=== PATIENT | female | born 1950 | race Caucasian/White ===

== ENCOUNTER 2019-04-12 14:19 | Inpatient (IN) ==
[2019-04-12] MEDS ORDERED: ASPIRIN ONE (14:31)
[2019-04-12] MEDS ORDERED: ASPIRIN PO ONE (14:32)
[2019-04-12 14:51] LABS: BASO# 0.03 X1000 (0.0-0.2); BASO% 0.3 % (0.0-0.8); EOS# 0.12 X1000 (0.0-0.7); EOS% 1.2 % (0.0-10.0); HEMATOCRIT 42.7 % (37.0-47.0); HEMOGLOBIN 13.8 g/dL (12.0-16.0); IMM GRAN# 0.02 X1000 (0.0-0.04); IMM GRAN% 0.2 % (0.0-0.5); LYMPH# 1.32 X1000 (1.2-3.4); LYMPH% 12.7 % (20.5-51.1); MCH 28.5 PG (27-31); MCHC 32.3 g/dL (33-37); MCV 88.2 FL (81-99); MONO# 1.07 X1000 (0.11-0.59); MONO% 10.3 % (1.7-9.3); MPV 10.4 FL (7.4-10.4); NEUT# 7.83 X1000 (1.4-6.5); NEUT% 75.3 % (42.2-75.2); PLT 229 X1000 (130-400); RBC 4.84 XMIL (4.2-5.4); RDW 13.2 % (11.5-14.5); WBC 10.39 X1000 (4.8-10.8)
--- NOTE | 2019-04-12 14:56 | EKG Report ---
Test Performed on : 04/12/2019 2:29:56 PM Test Reason : chest pain Blood Pressure : / mmHG Vent. Rate : 089 BPM Atrial Rate : 089 BPM P-R Int : 138 ms QRS Dur : 068 ms QT Int : 364 ms P-R-T Axes : 047 -04 060 degrees QTc Int : 442 ms Normal sinus rhythm. Low voltage QRS Inferior infarct (cited on or before 11-OCT-2018) Abnormal ECG When compared with ECG of 11-OCT-2018 21:23, Nonspecific T wave abnormality no longer evident in Inferior leads Nonspecific T wave abnormality no longer evident in Anterior leads Unconfirmed Result
--- NOTE | 2019-04-12 15:07 | Diag Imaging Result Doc PS360 ---
EXAM: CHEST-2 VIEWS - 04/12/2019 HISTORY: chest pain TECHNIQUE: Chest two views COMPARISON: 10/11/2018 one view chest FINDINGS: Heart size is normal. Inspiration is mildly shallow. There are scattered tiny granulomas from old granulomatous disease similar to prior. There is mild subsegmental atelectasis at the left base. The lungs otherwise appear clear. No pleural effusion or pneumothorax identified. IMPRESSION: Mildly shallow inspiration, with mild atelectasis at left base. No other evidence of acute disease.. Electronically signed by Ke Scanlon 04/12/2019 3:05 PM
[2019-04-12 15:16] LABS: ALBUMIN 4.9 g/dL (3.5-5.0); CALCIUM 9.6 mg/dL (8.8-10.2); CREATININE 1.1 mg/dL (0.5-0.9); POTASSIUM 4.3 mmol/L (3.5-5.1); TOTAL BILIRUBIN 0.6 mg/dL (0.20-1.00); TOTAL PROTEIN 8.1 g/dL (6.3-8.3)
[2019-04-12 15:24] LABS: INR 0.96; PROTIME 13.3 Seconds (11.0-16.0)
[2019-04-12 15:25] LABS: PTT 30.1 Seconds (22.3-41.8)
[2019-04-12] MEDS ORDERED: ZOFRAN IV ONE (15:59)
[2019-04-12] MEDS ORDERED: MORPHINE IV ONE (15:59)
--- NOTE | 2019-04-12 16:53 | PROVIDER DOCUMENTATION ---
This chart was entered by Freida Hagan Scribe, acting as scribe for Clair Mae MD. HPI-Chest Pain - General Chief Complaint: Chest Pain Stated Complaint: CHEST PAIN Time Seen by Provider: 04/12/19 14:27 Source: patient, family () Allergies/Adverse Reactions: Patient Allergies Allergy/AdvReac Type Severity Reaction Status Date / Time hydrocodone bitartrate * Allergy Severe RASH Verified 04/12/19 14:31 [From Vicodin] Home Medications: Home Medication List Medication Instructions Recorded Confirmed Last Taken Type Clopidogrel Bisulfate [Plavix] 75 mg PO DAILY 07/03/14 04/12/19 05/26/15 History Gabapentin [Neurontin] 300 mg PO TID 05/14/15 04/12/19 05/27/15 21:00 History 300 Metoprolol Succinate E.r. [Toprol 50 mg PO DAILY 05/14/15 04/12/19 05/27/15 21:00 History Xl] 50 Acetaminophen/Diphenhydramine 1 cap PO HS 10/09/15 04/12/19 Unknown History [Pain Relief Pm Gelcap] Citalopram [Celexa] 20 mg PO DAILY 10/09/15 04/12/19 Unknown History Olmesartan/Amlodipin/Hcthiazid 1 each PO DAILY 10/09/15 04/12/19 Unknown History [Tribenzor 40-5-25 mg Tablet] Amitriptyline [Elavil] 25 mg PO HS PRN #15 tab 02/26/18 04/12/19 Unknown Rx Diphenhyramine/Al&mg Oh/Lido [Mbx 15 ml MT 4XDAY PRN PRN #2 bottle 02/26/18 04/12/19 Unknown Rx Solution] Tramadol/APAP [Ultracet 1 ea PO Q6H PRN PRN #20 tab 02/26/18 04/12/19 Unknown Rx 37.5MG/325Mg] Insulin Detemir [Levemir Flextouch] 50 unit SQ HS 04/12/19 04/12/19 Unknown History - History of Present Illness-CP Nature of Presenting Problem: Pt is a 69 yowf brought to the ED by her family experiencing chest pain. Pt states that she thought it was indigestion and took o/c drugs to relieve it but nothing has worked. pt states that the pain is in the center of her chest and left side into her arm. pt is alert and nontoxic in appearance. Location: reports: central, shoulder Chest Pain Radiation: reports: neck (left side), shoulders (left) Quality of Pain: reports: dull (constantly), sharp (intermediate every 2 or 3 minutes) Severity in ED: severe Onset/Duration: 24 hours ago Timing: still present, intermittent (sharp pain), constant (dull pain) Context/Activities at Onset: reports: light activity Modifying Factors: improves with: antacids (taken to no effect) Associated Symptoms: denies: dizziness, syncope Aspirin Treatment Today: unknown Review of Systems - Adult - REVIEW OF SYSTEMS - ADULT Constitutional: denies: chills, fever Eyes: reports: no symptoms reported Ears, Nose, Mouth & Throat: reports: no symptoms reported Cardiovascular: reports: chest pain. denies: edema, syncope Respiratory: denies: cough, shortness of breath, wheezing Gastrointestinal: reports: no symptoms reported Genitourinary: reports: no symptoms reported Musculoskeletal: reports: see HPI, neck pain (left side) Integumentary: reports: no symptoms reported Neurological: denies: dizziness/vertigo, syncope Psychiatric: reports: no symptoms reported Endocrine: reports: no symptoms reported Hematologic/Lymphatic: reports: no symptoms reported Allergic/Immunologic: reports: no symptoms reported All Other Systems: Reviewed and Negative Past History - Adult - PAST MEDICAL HISTORY-ADULT Review of Records: reports: Old Records Reviewed, Nursing Assessment Review, Medications Reviewed, Social history reviewed & non-contributory. Major Childhood Illnesses: reports: denies history Cardiovascular: reports: CAD, HTN Respiratory: reports: denies history Gastrointestinal: reports: GERD, other (diverticulitis) Genitourinary: reports: denies history Musculoskeletal: reports: denies history Neurological: reports: Seizures/Epilepsy, TIA Endocrine/Immune: reports: Diabetes Other Conditions: reports: denies history - PRIOR SURGERIES/PROCEDURES Surgical/Procedure History: reports: hysterectomy, bowel surgery (colon resection) - IMMUNIZATION STATUS Childhood Immunizations: See Nurse Assessment Flu Vaccine: See Nurse Assessment - SOCIAL HISTORY Smoking: non-smoker Substance Use: denies Living Situation: family Physical Exam-General - PHYSICAL EXAM-ADULT Initial Vital Signs Reviewed: Yes - CONSTITUTIONAL General Appearance: alert, no apparent distress - EYES Eyes: PERRL/EOMI - HEAD, EARS, NOSE, MOUTH & THROAT HENMT: moist mucous membranes - RESPIRATORY Respiratory: lungs clear - CARDIOVASCULAR Cardiovascular: normal peripheral pulses, regular rate, rhythm - GASTROINTESTINAL (ABDOMEN) Abdominal Exam: non tender, soft - MUSCULOSKELETAL Back Exam: no CVA tenderness, no vertebral tenderness Extremity: non-tender - SKIN Integumentary: normal color, normal turgor, warm/dry - NEUROLOGIC Neurologic: grossly normal, no motor/sensory deficits - PSYCHIATRIC Psych/Mental Status: normal mood/affect, normal thought content, normal thought process, oriented x 3 - HEART Score HEART Score: History: Slightly Suspicious HEART Score: ECG: Non-Specific Repolarization Disturbance/LBBB/PM HEART Score: Age: > or = 65 Years HEART Score: Risk Factors for Atherosclerotic Disease: > or = 3 Risk Factors or History of Atherosclerotic Disease HEART Score: Troponin: < or = Normal Limit Total HEART Score:: 5 Progress - PLAN OF CARE/RESULTS Progress/Plan/Lab Results: Vital Signs - 8 hr 04/12/19 14:26 04/12/19 16:08 Temperature 98.2 F Pulse Rate 89 84 Respiratory Rate 18 20 Blood Pressure 134/81 124/72 O2 Sat by Pulse Oximetry 95 97 Laboratory Results - last 24 hr 04/12/19 04/12/19 04/12/19 14:40 14:40 14:40 WBC 10.39 RBC 4.84 Hgb 13.8 Hct 42.7 MCV 88.2 MCH 28.5 MCHC 32.3 L RDW Std Deviation 13.2 Plt Count 229 MPV 10.4 Immature Gran % (Auto) 0.2 Neut % (Auto) 75.3 H Lymph % (Auto) 12.7 L [place] % (Auto) 10.3 H Eos % (Auto) 1.2 Baso % (Auto) 0.3 Immature Gran # (Auto) 0.02 Neut # (Auto) 7.83 H Lymph # (Auto) 1.32 [place] # (Auto) 1.07 H Eos # (Auto) 0.12 Baso # (Auto) 0.03 PT INR PTT (Actin FS) Sodium 138 Potassium 4.3 Chloride 101 Carbon Dioxide 22 L Anion Gap 15 BUN 28 H Creatinine 1.1 H Estimated GFR/1.73 m2 49 BUN/Creatinine Ratio 25 Glucose 153 H Calculated Osmolality 284 Calcium 9.6 Total Bilirubin 0.60 AST 20 ALT 12 Alkaline Phosphatase 87 Creatine Kinase 147 Troponin T Anr-Q-[place] Pept 142 Total Protein 8.1 Albumin 4.9 Globulin 3.0 Albumin/Globulin Ratio 2.0 04/12/19 04/12/19 14:40 14:40 WBC RBC Hgb Hct MCV MCH MCHC RDW Std Deviation Plt Count MPV Immature Gran % (Auto) Neut % (Auto) Lymph % (Auto) [place] % (Auto) Eos % (Auto) Baso % (Auto) Immature Gran # (Auto) Neut # (Auto) Lymph # (Auto) [place] # (Auto) Eos # (Auto) Baso # (Auto) PT 13.3 INR 0.96 PTT (Actin FS) 30.1 Sodium Potassium Chloride Carbon Dioxide Anion Gap BUN Creatinine Estimated GFR/1.73 m2 BUN/Creatinine Ratio Glucose Calculated Osmolality Calcium Total Bilirubin AST ALT Alkaline Phosphatase Creatine Kinase Troponin T < 0.010 [id number] Pept Total Protein Albumin Globulin Albumin/Globulin Ratio Orders Category Date Time Status Cardiac Monitoring DIRECTED Care 04/12/19 14:32 Active Oxygen Therapy- ED Nursing DIRECTED Care 04/12/19 14:32 Active Saline Loc NOW Care 04/12/19 14:32 Active CHEST-2 VIEWS [RAD] Stat Exams 04/12/19 14:33 Completed CBC WITH ELECTRONIC DIFF [HEME] Stat Lab 04/12/19 14:40 Completed CK PROFILE [SP CHEM] Stat Lab 04/12/19 14:40 Completed COMPREHENSIVE METABOLIC PANEL [CHEM] Stat Lab 04/12/19 14:40 Completed PRO B-NATRIURETIC PEPTIDE Stat Lab 04/12/19 14:40 Completed PROTIME WITH INR [COAG] Stat Lab 04/12/19 14:40 Completed PTT [COAG] Stat Lab 04/12/19 14:40 Completed TROPONIN T Stat Lab 04/12/19 14:40 Completed Aspirin Med 04/12/19 14:31 Discontinued 325 mg .ROUTE .STK-MED ONE Aspirin Med 04/12/19 14:32 Discontinued 325 mg PO NOW ONE Morphine Med 04/12/19 15:59 Discontinued 4 mg IV NOW ONE Ondansetron [Zofran] Med 04/12/19 15:59 Discontinued 4 mg IV NOW ONE CP/SOB/Palp >45 yrs of Age Stat Oth 04/12/19 14:32 Ordered EKG [EKG] Stat Ther 04/12/19 14:32 Draft Result Diagrams: 04/12/19 14:40 04/12/19 14:40 - REASSESSMENT Reassessment #1 Time Reassessed: 16:42 Status: unchanged Reassessment Comment: at bedside discussing POC - EKG 1 Time of EKG reading by physician:: 15:57 EKG Read and Signed by:: Clair Mae EKG Interpretation (*Must complete 3 of following elements*): Abnormal Rate: 89 Rhythm: NSR [place]: normal QRS: other (Low voltage) [place] Interval: normal ST Wave: normal Comments: Inferior infarct, age undetermined - XRAY 1 XRAY Study: Chest Impression: See EMR Report (EXAM: CHEST-2 VIEWS - 04/12/2019 HISTORY: chest pain TECHNIQUE: Chest two views COMPARISON: 10/11/2018 one view chest FINDINGS: Heart size is normal. Inspiration is mildly shallow. There are scatter ed tiny granulomas from old granulomatous disease similar to prior. There is mild subsegmental atelectasis at the left base. The lungs otherwise appear clear. No pleural effusion or pneumothorax identified. IMPRESSION: Mildly shallow inspiration, with mild atelectasis at left base. No other evidence of acute disease.. Electronically signed by Ke Scanlon 04/12/2019 3:05 PM 04/12/19 1505 Interpreting Physician: Ke Scanlon MD Dictated Date/Time: 04/12/19 1503 cc: Clair Mae MD; Asmita Han MD) - CONSULTS/PCP/HOSPITALIST Notification #1 *Consult/PCP/Hospitalist*: Time Discussed: 16:44 Reason/Comments: HTN, chest pain Consult Disposition: Admit Departure - Departure Date of Disposition Decision: 04/12/19 Time of Disposition Decision: 16:52 DIAGNOSIS: Chest pain Qualifiers: Chest pain type: unspecified Qualified Code(s): R07.9 - Chest pain, unspecified Disposition: ADMITTED INPATIENT 09 Certified Medical Emergency: Emergent Condition: Good Referrals and Follow-Ups: Asmita Han MD [Primary Care Provider] - - Critical Care Note This patient required my direct & personal management of CC.: No Attestation - Physician/ CECILIA Attestation Patient care was provided by Advanced Practice Provider:: No The physician spent face to face time with patient:: Yes Advanced Practice Provider documentation review:: Supervising physician onsite and consulted in the evaluation and care of this patient. The physician did have a face to face encounter with the patient. This chart was documented by the indicated scribe, (Freida Hagan, Patricia) and accurately reflects the services I performed and decisions made by me, Clair Mae MD, as attested by the provider's signature.
[2019-04-12] MEDS ORDERED: MBX SOLUTION MT PRN (16:58)
[2019-04-12] MEDS ORDERED: ULTRACET 37.5MG/325MG PO PRN (16:58)
[2019-04-12] MEDS ORDERED: TYLENOL PO PRN (16:58)
[2019-04-12] MEDS ORDERED: NITROGLYCERIN SL PRN (16:58)
[2019-04-12] MEDS ORDERED: ELAVIL PO PRN (16:58)
[2019-04-12] MEDS ORDERED: ZOFRAN IV PRN (16:58)
[2019-04-12] MEDS ORDERED: NEURONTIN PO SCH (17:00)
--- NOTE | 2019-04-12 17:16 | EKG Report ---
Test Performed on : 04/12/2019 5:11:21 PM Test Reason : cp Blood Pressure : / mmHG Vent. Rate : 080 BPM Atrial Rate : 080 BPM P-R Int : 148 ms QRS Dur : 062 ms QT Int : 368 ms P-R-T Axes : 035 -12 015 degrees QTc Int : 424 ms Normal sinus rhythm. Inferior infarct (cited on or before 11-OCT-2018) Cannot rule out Anterior infarct , age undetermined Abnormal ECG When compared with ECG of 12-APR-2019 14:29, (Unconfirmed) Nonspecific T wave abnormality now evident in Inferior leads Unconfirmed Result
--- NOTE | 2019-04-12 18:24 | ED EKG INTERP ---
This chart was entered by Freida Hagan Scribe, acting as scribe for Clair Mae MD. EKG Interpretation - EKG Time of EKG reading by physician:: 17:13 EKG Read and Signed by:: Clair Mae EKG Interpretation (*Must complete 3 of following elements*): Abnormal (Cnnot rule out Anterior infarct , age undetermined) Rate: 80 Rhythm: NSR [place]: normal QRS: normal [place] Interval: normal ST Wave: normal Comments: Inferior infarct, age undetermined; Attestation - Physician/ CECILIA Attestation Patient care was provided by Advanced Practice Provider:: No The physician spent face to face time with patient:: Yes Advanced Practice Provider documentation review:: Supervising physician onsite and consulted in the evaluation and care of this patient. The physician did have a face to face encounter with the patient. This chart was documented by the indicated scribe, (Freida Hagan Scribe) and accurately reflects the services I performed and decisions made by me, Clair Mae MD, as attested by the provider's signature.
--- NOTE | 2019-04-12 20:39 | HISTORY AND PHYSICAL ---
PRIMARY CARE PROVIDERS: Asmita Han. AIRFRAME TECHNICIAN: Dr. Serrano. CHIEF COMPLAINT: Chest pain. HISTORY OF PRESENT ILLNESS: Ms. 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 She stated that it started around 7:30 last night in the kitchen when she was cutting up chicken for her puppy dog. She had nausea with it. It radiated up into her neck and into her back. She was dizzy, short of breath. It would only last for is a few seconds and it happen every few minutes. She was able to sleep last night, but she forgot about actually being able to take nitroglycerin or aspirin. She did not take either one. She states the pain would increase with a deep inspiration. Otherwise, there were no other symptoms. PAST MEDICAL HISTORY: 1. Coronary artery disease, stent in 2012. 2. Angina. 3. Anemia. 4. Diverticulosis. 5. GERD. 6. Dysphagia. 7. Peptic ulcer disease with a history of GI bleed. 8. Esophagitis with stricture, dilatation. 9. Chronic diarrhea. 10. Hiatal hernia. 11. Diabetes mellitus type 2. 12. Hypertension. 13. Hyperlipidemia. 14. 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 SURGICAL HISTORY: 1. Cardiac stent. 2. Esophageal dilatation. 3. Spinal surgery x3, 1 of them in the neck. 4. Cholecystectomy. 5. Appendectomy. 6. Bilateral cataracts. 7. Tonsillectomy and adenoidectomy. 8. Colon resection x2 or 3 due to polyps. She states that she was informed that if they had to do another colon resection, she would end up with a colostomy, but no colostomy for now. SOCIAL HISTORY: Denies tobacco, alcohol or illicit drug use. Lives at home with her . They enjoy go going to [employer], playing bingo on Fridays. FAMILY HISTORY: Mother had hypertension, coronary disease and dementia. Father had coronary disease, hypertension, and prostate cancer. ALLERGIES: Hydrocodone. HOME MEDICATIONS: 1. Celexa 20 mg p.o. daily. 2. Levemir 50 units subcutaneous nightly. 3. Neurontin 300 mg p.o. t.i.d. 4. Tylenol PM 1 capsule p.o. nightly. 5. Plavix 75 mg p.o. daily. 6. Toprol-XL 50 mg p.o. daily. 7. Olmesartan, amlodipine, hydrochlorothiazide 1 tablet p.o. daily. 8. Elavil 25 mg p.o. nightly p.r.n. 9. Magic mouthwash swish and swallow 4 times a day p.r.n. 10. Ultram 1 tablet p.o. every 6 hours p.r.n. IMAGING: Chest x-ray: Mild shallow inspiration, mild atelectasis of the left lung base. No evidence of acute disease. EKG normal sinus rhythm, rate 89, QTc 442. No ST elevations. ASSESSMENT AND PLAN: 1. Angina with history of coronary artery disease with stent, but also strong history of gastrointestinal-related symptoms. First set of cardiac enzymes are negative. She is going to have stress test in the morning. NPO after midnight. 2. Diabetes mellitus type 2. We will do pattern blood glucoses, sliding scale insulin. Continue home insulin. 3. Gastroesophageal reflux disease, dysphagia, peptic ulcer disease, esophagitis, history of stricture, and colon resection with chronic diarrhea. Also hiatal hernia history. She is actually on omeprazole 20 mg p.o. nightly. We might could increase that. It might help. We will re-evaluate that tomorrow. 4. Hyperlipidemia. Continue statin. 5. Hypertension. Continue home medications. 6. History of stroke. No new symptoms. 7. Deep venous thrombosis prophylaxis with sequential compression devices. Dictated by KYE Chamberlain for Mio Avila MD Addendum: Patient seen and examined by myself. Agree with KYE note. It reflects my assessment and plan. Patient is being admitted to hospital for chest pain. Workup in progress. Patient has many risk factors for CAD and she had stents placed so will order Lexiscan stress and rest test and will go from there. cc: KYE Chamberlain MD [facility]
[2019-04-12] MEDS ORDERED: TYLENOL PO SCH (21:00)
[2019-04-12] MEDS ORDERED: BENADRYL PO SCH (21:00)
[2019-04-12] MEDS ORDERED: TYLENOL PM PO SCH (21:00)
[2019-04-12] MEDS ORDERED: LEVEMIR INSULIN *HA SUBQ SCH (21:00)
[2019-04-12] MEDS ORDERED: HYDROCHLOROTHIAZIDE PO SCH (21:45)
[2019-04-12] MEDS ORDERED: TOPROL XL PO SCH (21:45)
[2019-04-12] MEDS ORDERED: BENICAR PO SCH (21:45)
[2019-04-12] MEDS ORDERED: CELEXA PO SCH (21:45)
[2019-04-12] MEDS ORDERED: NORVASC PO SCH (21:45)
[2019-04-12] MEDS ORDERED: PLAVIX PO SCH (21:45)
[2019-04-12] MEDS: NEURONTIN PO SCH (21:59)
[2019-04-13] MEDS: HUMULIN R (PARKWAY) SUBQ SCH ×3 (00:48→12:45)
[2019-04-13 05:16] LABS: BASO# 0.11 X1000 (0.0-0.2); BASO% 1.6 % (0.0-0.8); EOS# 0.21 X1000 (0.0-0.7); EOS% 3.1 % (0.0-10.0); HEMATOCRIT 40.2 % (37.0-47.0); HEMOGLOBIN 12.5 g/dL (12.0-16.0); IMM GRAN# 0.02 X1000 (0.0-0.04); IMM GRAN% 0.3 % (0.0-0.5); LYMPH# 1.95 X1000 (1.2-3.4); LYMPH% 29.1 % (20.5-51.1); MCH 28.6 PG (27-31); MCHC 31.1 g/dL (33-37); MONO# 1.02 X1000 (0.11-0.59); MONO% 15.2 % (1.7-9.3); MPV 10.7 FL (7.4-10.4); NEUT% 50.7 % (42.2-75.2); PLT 217 X1000 (130-400); RBC 4.37 XMIL (4.2-5.4); RDW 13.5 % (11.5-14.5); WBC 6.71 X1000 (4.8-10.8)
[2019-04-13 05:21] LABS: AGAP 14; ALBUMIN 4.1 g/dL (3.5-5.0); ALKALINE PHOSPHATASE 71 U/L (32-104); BUN 35 mg/dL (8-22); CHLORIDE 101 mmol/L (98-107); CHOLESTEROL 178 mg/dL (0-200); CK PROFILE 103 U/L (24-173); COSMO 282; CREATININE 1.6 mg/dL (0.5-0.9); ESTIMATED GFR 32; GLUCOSE 138 mg/dL (70-104); GOT 48 U/L (10-30); GPT 29 U/L (10-36); HDL 41 mg/dL (45-65); LDL 115 mg/dL; MAGNESIUM 2.1 mg/dL (1.5-2.7); POTASSIUM 4.5 mmol/L (3.5-5.1); SODIUM 136 mmol/L (136-145); TCO2 21 mmol/L (25-35); TOTAL PROTEIN 6.8 g/dL (6.3-8.3); TRIGLYCERIDES 111 mg/dL (35-135); VLDL 22 mg/dL
[2019-04-13] MEDS ORDERED: PRILOSEC PO SCH (07:00)
[2019-04-13] MEDS ORDERED: HYDROCHLOROTHIAZIDE PO SCH (09:00)
[2019-04-13] MEDS ORDERED: PLAVIX PO SCH (09:00)
[2019-04-13] MEDS ORDERED: BENICAR PO SCH (09:00)
[2019-04-13] MEDS ORDERED: TOPROL XL PO SCH (09:00)
[2019-04-13] MEDS ORDERED: AMLODIPIN PO SCH (09:00)
[2019-04-13] MEDS ORDERED: OLMESARTAN PO SCH (09:00)
[2019-04-13] MEDS ORDERED: NORVASC PO SCH (09:00)
[2019-04-13] MEDS ORDERED: HCTHIAZID PO SCH (09:00)
[2019-04-13] MEDS ORDERED: CELEXA PO SCH (09:00)
[2019-04-13] MEDS ORDERED: ASPIRIN PO SCH (09:00)
--- NOTE | 2019-04-13 10:16 | EKG Report ---
Test Performed on : 04/13/2019 00:51:52 AM Test Reason : CP Blood Pressure : / mmHG Vent. Rate : 065 BPM Atrial Rate : 065 BPM P-R Int : 166 ms QRS Dur : 064 ms QT Int : 414 ms P-R-T Axes : 053 -08 020 degrees QTc Int : 430 ms Normal sinus rhythm. Inferior infarct (cited on or before 11-OCT-2018) Abnormal ECG When compared with ECG of 12-APR-2019 17:11, (Unconfirmed) No significant change was found Confirmed by Pratik Mcdonough MD ([id number]) on 04/16/2019 9:32:09 PM
--- NOTE | 2019-04-13 10:17 | EKG Report ---
Test Performed on : 04/13/2019 05:24:58 AM Test Reason : CP Blood Pressure : / mmHG Vent. Rate : 063 BPM Atrial Rate : 063 BPM P-R Int : 168 ms QRS Dur : 080 ms QT Int : 436 ms P-R-T Axes : 053 -10 021 degrees QTc Int : 446 ms Normal sinus rhythm. Inferior infarct , age undetermined Abnormal ECG When compared with ECG of 13-APR-2019 05:20, (Unconfirmed) Previous ECG has undetermined rhythm, needs review Confirmed by Pratik Mcdonough MD ([id number]) on 04/16/2019 9:32:03 PM
--- NOTE | 2019-04-13 11:20 | GRADED EXERCISE REPORT ---
DATE: 04/13/2019 ORDERING PHYSICIAN: Dr. Mcdaniel. REASON FOR STUDY: Chest pain. FINDINGS: The patient underwent Lexiscan per protocol. Baseline EKG showed nonspecific changes, possibly Q in lead III. She underwent Lexiscan infusion 0.4 mg. Baseline heart rate 60, baseline blood pressure 89/57. She did develop chest pain, increasing chest pain during the procedure or during the Lexiscan. There were no significant ST changes, questionable ST elevation but not depression in V4, so the test was felt to be clinically positive, electrically negative. Peak heart rate 82, peak blood pressure 92/49. Myocardial perfusion reported separately. cc: Reji Younger MD
[2019-04-13 12:20] VITALS: BP 90/52
[2019-04-13] MEDS: NEURONTIN PO SCH (12:45)
[2019-04-13] MEDS ORDERED: LEXISCAN ONE (13:31)
--- NOTE | 2019-04-13 13:59 | Diag Imaging Result Document ---
PROCEDURE NAME: MYOCARDIAL PERF SCAN, STR/REST - 04/13/2019 LEXISCAN SESTAMIBI INTERPRETATION: SUMMARY: The patient administered 10.5 mCi of technetium-99m sestamibi, after which resting cardiac images were obtained. The patient was subsequently administered Lexiscan 0.4 mg intravenously, after which the heart rate went from 60 beats per minute to 82 beats per minute. The blood pressure went from 89/57 to 88/48. With Lexiscan, the patient reported chest discomfort. Following the administration of Lexiscan, the patient was administered 32.5 mCi of technetium-99m sestamibi, after which gated stress cardiac images were obtained. Baseline ECG demonstrated sinus rhythm and was within normal limits. With Lexiscan, there were no diagnostic ST-segment changes. SPECT images were reconstructed in the short, horizontal, and vertical long axis. Review of these images demonstrated homogeneous uptake of radiopharmaceutical in both stress and resting images. Gated images demonstrate a calculated left ejection fraction of 83% with symmetrical wall motion/thickening. CONCLUSIONS: 1. Adequate response to Lexiscan. 2. Clinically, the patient reported chest discomfort with Lexiscan. 3. Electrocardiographically negative for Lexiscan induced myocardial ischemia. 4. Normal Lexiscan sestamibi images. cc: MD Samina Fitzpatrick CRNP
--- NOTE | 2019-04-13 17:44 | HISTORY AND PHYSICAL ---
CONTINUATION: PHYSICAL EXAMINATION: VITAL SIGNS: Temperature 98.8 degrees, heart rate 89, respiratory rate 19, blood pressure 111/62, O2 saturation 96% on 2 L nasal cannula. GENERAL: Ms. Deysi Sandoval is a 69-year-old, female. She is in no acute distress. She is able to answer questions appropriately. HEENT: Atraumatic, normocephalic. Pupils equal, round, reactive to light. Extraocular movements intact. Mucous membranes are moist. She has no teeth. She is constantly moving her mouth. NECK: Trachea midline. CARDIOVASCULAR: S1, S2. Regular rate and rhythm. No rubs, gallops, murmurs. She has 1 lower extremity edema, 2+ dorsalis and radial pulses. Negative JVD or carotid bruits. PULMONARY: Clear to auscultation. Bilateral breath sounds. No accessory muscle use or work of breathing noted. GASTROINTESTINAL: Soft, nontender, nondistended. Positive bowel sounds x4. EXTREMITIES: Left upper arm extremity no hand educational technician at all, about a 1/5 strength with the shoulder involvement. Left lower extremity also weaker, like a 3/5. Right upper and lower extremity 4/5. NEUROLOGIC: Oriented x3. Follows commands. Decreased sensory in the left arm and left lower extremity. SKIN: Warm, dry, intact. Dictated by KYE Chamberlain for Mio Avila MD cc: KYE Chamberlain MD [facility]
--- NOTE | 2019-04-14 20:35 | DISCHARGE SUMMARY ---
ADMISSION DATE: 04/12/2019 DISCHARGE DATE: 04/13/2019 DISCHARGE DIAGNOSES: 1. Angina with history of coronary artery disease and stent. 2. Diabetes mellitus type 2. 3. Multiple gastrointestinal system complications such as gastroesophageal reflux disease, dysphagia, peptic ulcer disease, esophagitis, history of stricture, colon resection, chronic diarrhea, hiatal hernia. 4. Hyperlipidemia. 5. Hypertension. 6. History of stroke. CONSULTATIONS: None. SURGERIES AND PROCEDURES: She had a myocardial perfusion scan and an exercise stress test. Adequate response to Lexiscan. The patient reported discomfort with Lexiscan. It was negative for induced myocardial ischemia. The stress test: Possible Q waves in lead III. Heart rate 60, blood pressure was down to 89/57. She did develop chest pain. No significant ST changes, questionable ST elevation but not depression in V4. Clinically positive, electrically negative. HOSPITAL COURSE: Ms. Deysi Diego is a 69-year-old female with a medical history of cardiac stent, coronary disease with angina. Also multiple gastrointestinal system issues that can cause chest pain as well. She presented here with complaints of chest pain that started at 7:30 the night before she came in. She had some nausea with it. It radiated up into the neck and into the back. She was dizzy, short of breath. It only lasted for a few seconds, and every few minutes it would happen for a few seconds. Otherwise, pain improved during her course of stay, and she is going to be discharged home. DISCHARGE VITAL SIGNS: Temperature 97.8 degrees, heart rate 65, respiratory rate 18, blood pressure 90/52, O2 saturation 97% on room air. DISCHARGE LABORATORY DATA: White blood cells 6000, hemoglobin 12, hematocrit 40, platelet count 217,000. Sodium 136, potassium 4.5, BUN 35, creatinine is 1.6, glucose 138, calcium 9.0, magnesium 2.1, bilirubin 0.60, AST 48, ALT 29. CK 100. Troponin less than 0.01. Albumin is 4.1, triglycerides 111, total cholesterol 178. DIAGNOSTIC DATA: Chest x-ray: Mildly shallow inspiration, mild atelectasis at the left base. No other acute disease. EKG: Normal sinus rhythm, rate 89, QTc 442. Repeat EKG: Normal sinus rhythm, rate 80, QTc 424. Another EKG on 04/13/2019: Normal sinus rhythm, rate 65, QTc 430, and then a repeat on 04/13/2019: Normal sinus rhythm, rate 63, QTc 446. DISCHARGE MEDICATIONS: 1. Celexa 20 mg p.o. nightly. 2. Plavix 75 mg p.o. nightly. 3. Olmesartan, amlodipine and hydrochlorothiazide, all 1 tablet p.o. nightly. 4. Insulin 50 units subcutaneous nightly. 5. Neurontin 300 mg p.o. t.i.d. 6. Tylenol PM 1 tablet p.o. nightly. 7. Toprol-XL 50 mg p.o. daily. 8. Elavil 25 mg p.o. nightly p.r.n. 9. Magic mouthwash 4 times a day p.r.n. 10. Ultram with aspirin 1 tablet p.o. every 6 hours p.r.n. DISCHARGED DIET: Diabetic, heart healthy. DISCHARGE ACTIVITY: As tolerated. DISCHARGE PHYSICIAN FOLLOWUPS: Asmita Han, primary care provider. DISCHARGE INSTRUCTIONS: If condition changes, contact physician and/or return to the emergency department. Changes may include, but not limited to shortness of breath, increased fatigue, excessive bleeding, unexplained weight loss or gain, unmanageable pain or signs or symptoms of infection. DISCHARGE DISPOSITION: Home. Dictated by KYE Chamberlain for Mio Avila MD Addendum: Patient seen and examined by myself. Agree with KEY note. It reflects my assessment and plan. Patient is being discharged in stable condition. Will be seen by PCP in a week. cc: KYE Chamberlain MD [facility]
== END 2019-04-13 15:20 | disposition home health service (06) | DRG 392 ==
LOC: P.ED 14:19 → P.MEDSURG 20:00
PROVIDERS: ATTEND Internal Medicine

== ENCOUNTER 2019-05-23 16:40 | Inpatient (IN) ==
[2019-05-23] MEDS ORDERED: TYLENOL PO PRN (17:21)
[2019-05-23] MEDS ORDERED: ZOFRAN IV PRN (17:21)
[2019-05-23] MEDS ORDERED: VANCOMYCIN IV PER PHARMACY MISC SCH (17:30)
[2019-05-23 17:59] LABS: BASO# 0.05 X1000 (0.0-0.2); BASO% 0.8 % (0.0-0.8); EOS# 0.18 X1000 (0.0-0.7); EOS% 2.7 % (0.0-10.0); HEMATOCRIT 37.7 % (37.0-47.0); HEMOGLOBIN 12.3 g/dL (12.0-16.0); IMM GRAN# 0.02 X1000 (0.0-0.04); IMM GRAN% 0.3 % (0.0-0.5); LYMPH# 1.94 X1000 (1.2-3.4); LYMPH% 29.2 % (20.5-51.1); MCH 28.3 PG (27-31); MCHC 32.6 g/dL (33-37); MCV 86.9 FL (81-99); MONO# 0.75 X1000 (0.11-0.59); MONO% 11.3 % (1.7-9.3); MPV 10.2 FL (7.4-10.4); NEUT# 3.71 X1000 (1.4-6.5); NEUT% 55.7 % (42.2-75.2); PLT 228 X1000 (130-400); RBC 4.34 XMIL (4.2-5.4); RDW 13.3 % (11.5-14.5); WBC 6.65 X1000 (4.8-10.8)
[2019-05-23 18:23] LABS: URINE SOURCE CLEAN CATCH
[2019-05-23] MEDS: NS 1,000 ML IV SCH (18:25)
[2019-05-23 18:26] LABS: CALCIUM 9.1 mg/dL (8.8-10.2); CREATININE 1.5 mg/dL (0.5-0.9); POTASSIUM 4.2 mmol/L (3.5-5.1)
[2019-05-23 18:28] LABS: BILIRUBIN URINE NEGATIVE (NEGATIVE); BLOOD URINE NEGATIVE (NEGATIVE); COLOR YELLOW; GLUCOSE URINE NEGATIVE (NEGATIVE); KETONE URINE NEGATIVE (NEGATIVE); LEUKOCYTES URINE LARGE (NEGATIVE); NITRITE URINE NEGATIVE (NEGATIVE); PROTEIN URINE TRACE mg/dL (NEGATIVE); TURBIDITY URINE CLEAR (CLEAR); UR EPITHELIAL CELLS <10 /HPF (<10); URINE BACTERIA NEGATIVE /HPF; URINE RBC <10 /HPF (<10); URINE WBC <10 /HPF (<10); UROBILINOGEN URINE NORMAL (NORMAL)
[2019-05-23] MEDS: VANCOMYCIN 1 GM/NS 1 GM/250 ML IVPB IV ONE ×2 (20:11→21:49)
--- NOTE | 2019-05-23 20:11 | HISTORY AND PHYSICAL ---
PRIMARY CARE PHYSICIAN: Dr. Asmita Han. CHIEF COMPLAINT: Of a failed outpatient treatment UTI that grew out a urine culture Staph aureus, did take Bactrim, no improvement in symptoms, came to the emergency room last Tuesday, placed on Levaquin took that, no improvement in symptoms. Review of urine culture shows a Staph aureus that is sensitive to vancomycin so she is a direct admit from her primary care physician's office. HISTORY OF PRESENTING ILLNESS: This is a 69-year-old female who presents to [facility] ER as a direct admit from her primary care physician's office after she was diagnosed with a UTI a couple of weeks ago, started on Bactrim, did not have an improvement in her dysuria and frequency so she came to the emergency room on 05/18/2019. Had a urinalysis that was positive so she was placed on Levaquin. Her culture though grew out a Staph aureus and greatest sensitivity was to vancomycin with an ALHAJI of less than equal to 0.5 so she is being admitted for failed outpatient treatment. States that she continues to have some dysuria, worsening neuropathy to her bilateral lower extremity since starting the Levaquin so she will be admitted for further evaluation and treatment. 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 PAST SURGICAL HISTORY: Heart stent placement, esophageal dilation, spinal surgery x3 one to the neck, cholecystectomy, appendectomy, bilateral cataracts, tonsillectomy and adenoidectomy, a colon resection times 2 to 3 due to polyps. FAMILY HISTORY: Reviewed and noncontributory. SOCIAL HISTORY: She currently lives with her , denies any tobacco, alcohol or illicit drug use. ALLERGIES: Hydrocodone. HOME MEDICATIONS: Will need to obtain a current list, reconcile, review and restart as appropriate. Will place an order for nursing to update and confirm home medications. LABORATORY DATA: As a direct admit. We are obtaining a blood culture x2, BMP, CBC, UA with reflex culture. Will do a CT renal stone search and review those results when available. REVIEW OF SYSTEMS: She denies any fever, chills, blurred vision, dizziness, chest pain, coughing, shortness of breath, she denied any abdominal pain. She does have dysuria, frequency, increased numbness and tingling to her bilateral lower extremities. Denied any constipation, diarrhea, nausea, vomiting, abdominal pain. PHYSICAL EXAMINATION: On arrival showed a temperature of 98.1 degrees, pulse 73, respirations 18, blood pressure 148/66, saturating 99% on room air. GENERAL: This is a 69-year-old female who is sitting on the side of the bed but answers questions appropriately. HEENT: Normocephalic, atraumatic. Normal ENT inspection. Oropharynx and nares are clear. Pupils are equal, round and reactive to light, accommodation. Extraocular movements are intact. NECK: Normal inspection, normal range of motion. LUNGS: Clear to auscultation bilaterally with equal lung expansion and chest wall movement. HEART: Regular rate and rhythm. No murmurs, rubs, or gallops. ABDOMEN: Soft, nontender, nondistended. Bowel sounds are present x4 quadrants. MUSCULOSKELETAL: She had 5/5 strength to bilateral lower extremities. She does have some left hemiparesis status post an old CVA. NEUROLOGICAL: The cranial nerves 2-12 appear grossly intact. ASSESSMENT: 1. Urinary tract infection with failed outpatient treatment. Urine culture on the 18 of May grew out a Staph aureus sensitive to vancomycin. 2. Diabetes type 2. 3. Hypertension. 4. Cerebrovascular accident history of. PLAN: She was admitted to the medical unit. We are going to place her on a healthy heart diet. We need to update and confirm home medications. Will check a blood culture x2. Will repeat a UA, CBC, BMP, do a CT renal stone search tonight, place her on normal saline at 75 mL an hour, Zofran 4 mg IV q.4 hours p.r.n., Tylenol 650 p.o. q.6 hours p.r.n., vancomycin per pharmacy protocol. Will review all her labs when they result and we will restart home medications when we obtain a current list. Further orders after seen by attending. Dictated by KYE Murray for Michael Puga MD cc: MD Michael Pitt MD
--- NOTE | 2019-05-23 20:24 | Diag Imaging Result Doc PS360 ---
EXAM: CT RENAL STONE SEARCH HISTORY: UTI,FOP tx TECHNIQUE: CT abdomen and pelvis without intravenous contrast COMPARISON: 05/14/2015 FINDINGS: The gallbladder has been removed. No focal hepatic abnormality identified on this noncontrasted exam. No splenomegaly. No inflammation about the pancreas. Normal adrenal glands. No renal stones. No hydronephrosis. Severe atherosclerosis. There is stool throughout the colon. There are scattered colonic diverticula. There are sutures noted the rectosigmoid junction. There is a left-sided urinary bladder diverticulum. The uterus has been removed. No adnexal mass. The multiple pelvic phleboliths. No ascites. IMPRESSION: 1.Cholecystectomy 2.Severe atherosclerosis 3.Constipation 4.Hysterectomy 5.Urinary bladder diverticulum 6.Colonic diverticulosis This exam was performed using automated exposure control, adjustment of mA or kV according to patient size, and/or use of iterative reconstruction technique. Electronically signed by Samuel Torres 05/23/2019 8:22 PM
--- NOTE | 2019-05-23 20:27 | HISTORY AND PHYSICAL ---
ADDENDUM: Patient seen and examined by myself. Full note dictated and discussed with nurse practitioner. Patient presented to the hospital after having failed outpatient management of her urinary tract infection, which I believe is growing methicillin-resistant Staphylococcus aureus. She was given Bactrim, which did not improve. She was sent back home. She followed up in the ER, was given Levaquin, which unfortunately was not sensitive and is still having symptoms. Therefore, we are going to admit her to the hospital, place her on treatment with vancomycin, and we will follow. cc: Michael Puga MD
[2019-05-23] MEDS: ELAVIL PO SCH (23:14)
[2019-05-23] MEDS: BENADRYL PO SCH (23:14)
[2019-05-23] MEDS: TYLENOL PO SCH (23:14)
[2019-05-24] MEDS ORDERED: TYLENOL PO PRN (06:49)
[2019-05-24] MEDS ORDERED: ZOFRAN IV PRN (06:49)
[2019-05-24] MEDS ORDERED: VANCOMYCIN IV PER PHARMACY MISC SCH (07:00)
[2019-05-24] MEDS: NS 1,000 ML IV SCH ×2 (08:16→12:12)
[2019-05-24] MEDS ORDERED: MBX SOLUTION MT PRN (18:39)
--- NOTE | 2019-05-24 19:05 | PROGRESS NOTE ---
DATE: 05/24/2019 SUBJECTIVE: Patient has no complaints. She states that overall she is feeling fine. Denies any fevers or chills. OBJECTIVE: Vital Signs: Temperature 97, pulse 83, respiratory 18, blood pressure 103/46. General: The patient is in no current respiratory distress. HEENT: Normocephalic. Cardiovascular: Regular rate. Chest: Clear. Abdomen: Soft. Extremities: Moves all extremities. ASSESSMENT: 1. Hypertension. Currently patient's blood pressures have actually been low at all times. She has been in the hospital 103 and 93/47. This is without taking her home blood pressure medications. Therefore, we are going to continue to leave these off. 2. Diabetes. Blood sugars currently stable. Continue home medications as she is eating well. Place her on sliding scale. 3. Abnormal urine culture although her urine culture on 05/18 is read as Staph aureus methicillin sensitive that is sensitive to vancomycin, gentamicin, nitrofurantoin and Bactrim. She did have a repeat urine culture on 05/23, which currently is no growth. We will continue to follow. cc: Michael Puga MD MTDD
[2019-05-24] MEDS: PLAVIX PO SCH (22:15)
[2019-05-24] MEDS: BENADRYL PO SCH (22:15)
[2019-05-24] MEDS: ELAVIL PO SCH (22:15)
[2019-05-24] MEDS: TYLENOL PO SCH (22:15)
[2019-05-24] MEDS: CELEXA PO SCH (22:15)
[2019-05-24] MEDS: LEVEMIR INSULIN *HA SUBQ SCH (22:16)
[2019-05-25] MEDS: NS 1,000 ML IV SCH ×2 (02:00→16:48)
[2019-05-25] MEDS ORDERED: VANCOMYCIN 1 GM/NS 1 GM/250 ML IVPB IV SCH (09:00)
[2019-05-25] MEDS: NEURONTIN PO SCH (09:55)
--- NOTE | 2019-05-25 18:59 | PROGRESS NOTE ---
DATE: 05/25/2019 SUBJECTIVE: Patient notes that he is having some nausea and vomiting and actually had some dry heaves overnight. Denies any current nausea. Denies any fevers, chills. Denies any abdominal pain. PHYSICAL EXAM: Vital Signs: Temperature 97.6, pulse 65, respiratory rate 18, BP 120/59. General: The patient is pleasant. She is in no distress. Does seem somewhat confused at times. HEENT: Normocephalic. Neck: Supple. Cardiovascular: Regular rate. Chest: Clear. Abdomen: Soft. Extremities: Moves all extremities. ASSESSMENT/PLAN: 1. Nausea and vomiting of undetermined origin. 2. Urinary tract infection. Her most recent urine culture is no growth. We are going to continue vancomycin for 1 more day until she has had a full 48 hours of no growth on her urine culture, and then certainly consider stopping it. 3. Diabetes. 4. Hypertension. 5. Cerebrovascular accident, which certainly can be affecting her current symptomatology. cc: Michael Puga MD
[2019-05-25] MEDS: BENADRYL PO SCH (20:46)
[2019-05-25] MEDS: ELAVIL PO SCH (20:46)
[2019-05-25] MEDS: PLAVIX PO SCH (20:47)
[2019-05-25] MEDS: CELEXA PO SCH (20:47)
[2019-05-25] MEDS: LEVEMIR INSULIN *HA SUBQ SCH (21:54)
[2019-05-26] MEDS: NS 1,000 ML IV SCH (05:31)
[2019-05-26] MEDS: NEURONTIN PO SCH (10:03)
--- NOTE | 2019-05-26 16:54 | PROGRESS NOTE ---
DATE: 05/26/2019 SUBJECTIVE: Patient notes that her nausea is improved. Denies any recent vomiting. OBJECTIVE: On physical, temperature 97, pulse 63, respiratory rate 18, and BP 115/53.General: Patient is pleasant. He is in no current respiratory distress. HEENT: Normocephalic. Neck: Supple. CV: Regular rate. Lungs: Chest clear. Abdomen: Soft and nondistended. Extremities: Moves all extremities. ASSESSMENT: 1. Nausea and vomiting. 2. Resolved urinary tract infection. We are going to stop vancomycin. 3. Diabetes. 4. Hypertension. 5. History of cerebrovascular accident. PLAN: We are going to stop her antibiotics. She is still having trouble with nausea. We are going to advance her diet. If she improves, hopefully she can discharge home today. If not, hopefully tomorrow. cc: Michael Puga MD
[2019-05-26 20:22] LABS: OCCULT BLOOD 1 NEGATIVE (NEGATIVE)
[2019-05-26] MEDS: CELEXA PO SCH (20:43)
[2019-05-26] MEDS: BENADRYL PO SCH (20:43)
[2019-05-26] MEDS: LEVEMIR INSULIN *HA SUBQ SCH (20:43)
[2019-05-26] MEDS: ELAVIL PO SCH (20:43)
[2019-05-26] MEDS: PLAVIX PO SCH (20:43)
[2019-05-27] MEDS: NEURONTIN PO SCH (10:13)
[2019-05-27 11:19] VITALS: BP 140/56
--- NOTE | 2019-05-27 21:03 | DISCHARGE SUMMARY ---
ADMISSION DATE: 05/23/2019 DISCHARGE DATE: 05/27/2019 DISCHARGE DIAGNOSIS: 1. Dysuria. The patient does not appear to have a urinary tract infection. Her most recent culture has been negative at 72 hours. Her previous culture did grow methicillin-resistant Staphylococcus, but again, most recent has been completely negative. 2. Type 2 diabetes. 3. Nausea, appears to have resolved. 4. History of cerebrovascular accident. 5. Hypertension. CONSULTATIONS: None. PROCEDURES: None. BRIEF HOSPITAL COURSE: The patient was admitted to the hospital secondary to a presumed urinary tract infection with nausea, abdominal pain. Her recent urine culture has been negative. Therefore, her vancomycin has been stopped. She did have some issues with nausea. They kept her in the hospital for 2 more days. I believe this is more likely secondary to her esophagitis with known stricture and her hiatal hernia as well as diabetes rather than a true urinary tract infection. Thankfully, this has resolved on discharge although she does have significant GI issues of reflux, dysphagia, peptic ulcer disease with history of GI bleeding, history of esophagitis and hiatal hernia. Her GI symptoms appear to be at their baseline and therefore she will be discharged home. DISPOSITION: The patient will be discharged home without antibiotics as she has no clear source of infection. cc: Michael Puga MD
== END 2019-05-27 14:09 | disposition home health service (06) | DRG 696 ==
LOC: OBSVTOIN 16:40 → P.DIRADM 16:40 → INTOOBSV 16:40 → P.MEDSURG 16:58
PROVIDERS: ATTEND Family Medicine